=== PATIENT | female | born 1965 | race Caucasian/White ===

== ENCOUNTER 2017-04-07 13:26 | Emergency (ER) | payer OTHER ==
[~2017-04-07 13:26] MED LIST: ACETTAB15; NEXI40CA PO; OMEP20.62 OR; SARA20TA PO
[2017-04-07 13:29] VITALS: BP 128/83; PULSE 86; RESP 20; TEMP 97.8; O2SAT 96
[2017-04-07] MEDS ORDERED: AMOX875T PO (13:44)
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
--- NOTE | 2017-04-07 14:35 | RADRPT ---
EXAM DATE/TIME: 04/07/2017 14:21 [facility] COMPARISON: No previous studies available for comparison. INDICATIONS : Cough, chest congestion. MEDICAL HISTORY : None. SURGICAL HISTORY : None. ENCOUNTER: Initial ACUITY: 3 months PAIN SCORE: 0/10 LOCATION: Bilateral chest FINDINGS: PA and lateral views of the chest demonstrate the lungs to be symmetrically aerated without evidence of mass, infiltrate or effusion. The cardiomediastinal contours are unremarkable. Osseous structure s are intact. CONCLUSION: Normal examination. Jagdish Morrissey MD on April 07, 2017 at 14:33 Board Certified Radiologist. This report was verified electronically.
[2017-04-07] MEDS ORDERED: PRED20 PO (14:50)
[2017-04-07] MEDS ORDERED: VENTAER INH (14:50)
== END 2017-04-07 14:55 | disposition home or self-care (01) ==
LOC: PHEFT 13:26
DX: J20.9 Acute bronchitis, unspecified (principal); Z72.0 Tobacco use
CPT/HCPCS: 71020; 99284